=== PATIENT | female | born 1985 | race Caucasian/White ===

== ENCOUNTER 2016-07-15 22:18 | Emergency (ER) ==
[2016-07-15 22:25] VITALS: BP 132/68; TEMP 97.9; BMI 34.5
[2016-07-15] MEDS ORDERED: TYLENOL PO STA (22:30)
[2016-07-15] MEDS ORDERED: DECADRON 4 MG/ML SDV IM STA (22:31)
--- NOTE | 2016-07-15 22:33 | ED.PDOC ---
General ED Provider: Dr. STAN HERNANDEZ Chief Complaint: Nausea/Vomiting Stated Complaint: Coughing congestion, sinus draiange, hurting all over, nausea vomitings, Time Seen by Physician: 22:31 Mode of Arrival: Walk-In Information Source: Patient Primary Care Provider: NATALIE JOHNSON Nursing and Triage Documentation Reviewed and Agree: Yes Respiratory Complaint Exam - Respiratory Complaint/Exam Symptoms Are: Still present Timing: Constant Initial Severity: Moderate Current Severity: Moderate Location: Chest Character: Reports: Productive cough Aggravating: Reports: Allergens, URI Alleviating: Reports: None Associated Signs and Symptoms: Reports: URI, Nasal congestion, Hoarseness, Sore throat. Denies: Rapid breathing, Dyspnea, Fever, Chills, Chest pain, Pleuritic chest pain, Wheezing, Hemoptysis, Dizziness, Calf pain, Calf swelling, Edema, Sinus discomfort, Vomiting, Weight loss, Decreased oral intake, Increased thirst , Increased appetite, Increased urination History of Healthcare-Acquired Pneumonia: No Related Surgical History: Reports: None Pulmonary Embolism Risk Factors: None Cardiac Risk Factors: Reports: None Pseudomonas Risk Factors: Reports: None Tuberculosis Risk Factors: Reports: None Status Asthmaticus Risk Factors: Reports: None Home Oxygen Use: No Recent Stress Test: No Recent Echo/LV Function: No Current Antibiotic Use: No Current Asthma Medication Use: No Respiratory Distress: None Inadequate Respiratory Effort: No Dysphagia Present: No Stridor Present: No JVD Present: No Accessory Muscle Use: No Retractions: Not Present Diminished Breath Sounds: Yes Sinus Tenderness: None Grunting Respirations: No Kussmaul Respirations: No Differential Diagnoses: Pneumonia, Bronchitis, Influenza Review of Systems - Review Of Systems Constitutional: Reports: Fever, Malaise, Weakness Eyes: Reports: No symptoms Ears, Nose, Mouth, Throat: Reports: Throat pain Respiratory: Reports: Cough, Orthopnea Cardiac: Reports: No symptoms GI: Reports: No symptoms : Reports: No symptoms Musculoskeletal: Reports: No symptoms Skin: Reports: No symptoms Neurological: Reports: No symptoms Endocrine: Reports: No symptoms Hematologic/Lymphatic: Reports: No symptoms All Other Systems: Reviewed and Negative Past Medical History - Past Medical History Previously Healthy: Yes Endocrine: Reports: None Cardiovascular: Reports: None Respiratory: Reports: None Hematological: Reports: None Gastrointestinal: Reports: None Genitourinary: Reports: None Neuro/Psych: Reports: None Musculoskeletal: Reports: Joint Pain Cancer: Reports: None Last Menstrual Period: 1 week ago - Surgical History General Surgical History: Reports: Tubal ligation - Family History Family History: Reports: Cancer (Breast cancer at early age ) - Social History Smoking Status: Current every day smoker, Heavy tobacco smoker Hx Substance Use: No Alcohol Screening: None - Immunizations Tetanus Shot up to Date: Yes Physical Exam - Physical Exam Appearance: Ill-appearing, Obese Ill-appearing: Moderate Eyes: RIMMA, EOMI, Conjunctiva clear ENT: Erythema Respiratory: Airway patent, Breath sounds clear, Breath sounds equal, Respirations nonlabored Cardiovascular: RRR, Pulses normal, No rub, No murmur GI/: Soft, Nontender, No masses, Bowel sounds normal, No Organomegaly Musculoskeletal: Normal strength, ROM intact, No edema, No calf tenderness Skin: Warm, Dry, Normal color Neurological: Sensation intact, Motor intact, Reflexes intact, Cranial nerves intact, Alert, Oriented Psychiatric: Affect appropriate, Mood appropriate Critical Care Note - Critical Care Note Total Time (mins): 0 Course - Course Hematology/Chemistry: 07/15/16 22:40 07/15/16 22:40 Orders, Labs, Meds: Lab Review 07/15/16 07/16/16 22:40 00:39 WBC 12.46 H RBC 4.36 Hgb 13.1 Hct 39.0 MCV 89.4 MCH 30.0 MCHC 33.6 RDW Coeff of Cate 14.7 Plt Count 239 Immature Gran % (Auto) 0.2 Neut % (Auto) 67.3 Lymph % (Auto) 23.0 [place] % (Auto) 8.4 Eos % (Auto) 0.8 Baso % (Auto) 0.3 Immature Gran # (Auto) 0.0 Neut # 8.4 H Lymph # 2.9 [place] # 1.1 Eos # 0.1 Baso # 0.0 Sodium 139 Potassium 3.7 Chloride 107 Carbon Dioxide 25 Anion Gap 10.7 BUN 9 Creatinine 0.79 Estimated GFR (MDRD) 84.00 BUN/Creatinine Ratio 11.39 Glucose 108 Calcium 8.9 Total Bilirubin 0.33 AST 12 L ALT 18 Alkaline Phosphatase 80 Total Protein 6.6 Albumin 3.6 Globulin 3.0 Albumin/Globulin Ratio 1.20 Urine Color Yellow Urine Clarity Clear Urine pH 5.5 Ur Specific [place] >=1.030 Urine Protein Negative Urine Glucose (UA) Negative Urine Ketones Negative Urine Blood Negative Urine Nitrite Negative Urine Bilirubin Negative Urine Urobilinogen 1.0 Ur Leukocyte Esterase Negative Influenza A (Rapid) Negative Influenza B (Rapid) Negative Orders Category Date Time Status BLOOD CULTURE Stat LAB 07/15/16 22:40 Received CBC W/ AUTO DIFF Stat LAB 07/15/16 22:40 Completed COMPREHENSIVE METABOLIC PANEL Stat LAB 07/15/16 22:40 Completed MOLECULAR GROUP A STREP Stat LAB 07/15/16 22:40 Results RAPID FLU A/B Stat LAB 07/15/16 22:40 Completed STREP SCREEN Stat LAB 07/15/16 22:40 Results UA [URINALYSIS C & S IF INDICATED] Stat LAB 07/16/16 00:39 Completed Acetaminophen [Tylenol] MEDS 07/15/16 22:30 Discontinued 500 mg PO ONCE STA Cephalexin [Keflex] MEDS 07/16/16 00:29 Discontinued 500 mg PO ONCE STA Dexamethasone 4 mg/ml Inj [Decadron 4 mg/ml Sdv] MEDS 07/15/16 22:31 Discontinued 4 mg IM ONCE STA CHEST, 2 VIEWS PA & LAT Stat RADS 07/15/16 22:30 Completed Medications Discontinued Medications Generic Name Dose Route Start Last Admin Trade Name Freq PRN Reason Stop Dose Admin Acetaminophen 500 mg 07/15/16 22:30 07/15/16 22:46 Tylenol PO 07/15/16 22:31 500 mg ONCE STA Administration Cephalexin 500 mg 07/16/16 00:29 07/16/16 00:37 Keflex PO 07/16/16 00:30 500 mg ONCE STA Administration Dexamethasone Sodium Phosphate 4 mg 07/15/16 22:31 07/15/16 22:47 Decadron 4 Mg/Ml Sdv IM 07/15/16 22:32 4 mg ONCE STA Administration Vital Signs: Temp Pulse Resp BP Pulse Ox 07/15/16 22:18 97.9 F 67 20 132/68 93 L Departure - Departure Time of Disposition: 00:48 Disposition: HOME SELF-CARE Discharge Problem: URTI (acute upper respiratory infection) Instructions: Upper Respiratory Infection (ED) Condition: Stable Pt referred to PMD for follow-up: Yes Additional Instructions: cut down on soda INCREASE HYDRATION TYLENOL OR IBUPROFEN PRN Prescriptions: Cephalexin [Keflex] 500 mg PO Q12HR #20 capsule Prednisone 10 mg PO BIDWM #14 tablet Allergies/Adverse Reactions: Allergies codeine Adverse Reaction (Verified 05/25/16 18:44) THROAT SWELLS SHUT ketorolac [From Toradol] Adverse Reaction (Verified 05/25/16 18:44) morphine Adverse Reaction (Verified 05/25/16 18:44) THROAT SWELLING Penicillins Adverse Reaction (Verified 05/25/16 18:44) tape Adverse Reaction (Uncoded 05/18/16 15:15) Home Medications: Ambulatory Orders Gabapentin 600 mg PO TID 01/31/14 Alprazolam [Xanax] 2 mg PO TID 02/08/15 Citalopram Hydrobromide [Celexa] 40 mg PO BID 02/24/15 Ibuprofen 800 mg PO TID PRN 08/27/15 Levetiracetam [Keppra] 1,000 mg PO BID 08/27/15 Cephalexin [Keflex] 500 mg PO Q12HR #20 capsule 07/16/16 Prednisone 10 mg PO BIDWM #14 tablet 07/16/16 Disposition Discussed With: Patient, Family
[2016-07-15 22:51] LABS: BASOPHILS % (AUTO) 0.3 % (0.0-3.0); EOSINOPHILS # (AUTO) 0.1 K/ul (0.0-0.7); EOSINOPHILS % (AUTO) 0.8 % (0.0-7.0); HEMOGLOBIN 13.1 g/dl (12.0-16.0); IMMATURE GRANULOCYTE % (AUTO) 0.2 % (0.0-5.0); LYMPHOCYTES # (AUTO) 2.9 K/uL (0.60-3.4); MEAN CORPUSCULAR HGB CONC 33.6 (31.8-35.4); MEAN CORPUSCULAR VOLUME 89.4 fl (81.0-99.0); MONOCYTES # (AUTO) 1.1 K/uL (0.4-2.0); MONOCYTES % (AUTO) 8.4 (0-10); NEUTROPHILS # (AUTO) 8.4 K/ul (2.0-6.9); NEUTROPHILS % (AUTO) 67.3; PLATELET COUNT 239 10^3/uL (140-440); RED BLOOD COUNT 4.36 10^6/ul (4.20-5.40); WHITE BLOOD COUNT 12.46 K/ul (4.6-10.2)
[2016-07-15 23:08] LABS: FLU INTERNAL QC INTERNAL QC VALID; RAPID FLU A NEGATIVE (NEGATIVE); RAPID FLU B NEGATIVE (NEGATIVE)
[2016-07-15 23:12] LABS: ALBUMIN 3.6 g/dL (3.4-5.0); ALBUMIN/GLOBULIN RATIO 1.2; ANION GAP 10.7; BILIRUBIN,TOTAL 0.33 mg/dL (0.00-1.20); CALCIUM 8.9 mg/dL (8.2-10.2); CREATININE 0.79 mg/dL (0.60-1.30); POTASSIUM 3.7 mmol/L (3.5-5.10); TOTAL PROTEIN 6.6 g/dL (6.4-8.2)
[2016-07-15 23:13] LABS: BUN/CREATININE RATIO 11.39
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
[2016-07-16] MEDS ORDERED: KEFLEX PO STA (00:29)
[2016-07-16 00:42] LABS: BILIRUBIN,URINE Negative (NEGATIVE); KETONES,URINE Negative (NEGATIVE); LEUKOCYTE ESTERASE ,URINE Negative (NEGATIVE); NITRITE,URINE Negative (NEGATIVE); PH,URINE 5.5 (5-9); PROTEIN,URINE Negative (NEGATIVE); URINE, BLOOD Negative (NEGATIVE)
[2016-07-16 00:43] LABS: ADD URINE MICROSCOPIC NO
== END 2016-07-16 01:09 | disposition home or self-care (01) ==
LOC: ED 22:18
DX: J06.9 Acute upper respiratory infection, unspecified (principal); R11.2 Nausea with vomiting, unspecified; F17.210 Nicotine dependence, cigarettes, uncomplicated; Z79.899 Other long term (current) drug therapy
CPT/HCPCS: 36415; 80053; 81001; 85025; 87040; 87651; 87804; 87880; 96372; 99283

== ENCOUNTER 2016-08-02 09:57 | Outpatient (CLI) ==
[2016-08-02 10:31] LABS: BASOPHILS % (AUTO) 0.3 % (0.0-3.0); EOSINOPHILS # (AUTO) 0.1 K/ul (0.0-0.7); EOSINOPHILS % (AUTO) 1.7 % (0.0-7.0); HEMATOCRIT 41.9 % (37.0-47.0); HEMOGLOBIN 14.3 g/dl (12.0-16.0); IMMATURE GRANULOCYTE % (AUTO) 0.4 % (0.0-5.0); LYMPHOCYTES % (AUTO) 25.8 (10.0-50.0); MEAN CORPUSCULAR HEMOGLOBIN 30.9 pg (27.0-31.0); MEAN CORPUSCULAR HGB CONC 34.1 (31.8-35.4); MEAN CORPUSCULAR VOLUME 90.5 fl (81.0-99.0); MONOCYTES # (AUTO) 0.6 K/uL (0.4-2.0); MONOCYTES % (AUTO) 8.1 (0-10); NEUTROPHILS % (AUTO) 63.7; PLATELET COUNT 243 10^3/uL (140-440); RED BLOOD COUNT 4.63 10^6/ul (4.20-5.40)
[2016-08-02 14:16] LABS: ALBUMIN 3.7 g/dL (3.4-5.0); ALBUMIN/GLOBULIN RATIO 1.06; ANION GAP 14.2; BILIRUBIN,TOTAL 0.33 mg/dL (0.00-1.20); BUN/CREATININE RATIO 16.45; CALCIUM 9.1 mg/dL (8.2-10.2); CHOL/HDL RATIO 7.6 (4.5-5.5); CREATININE 0.79 mg/dL (0.60-1.30); FOLATE 4.6 ng/mL (3.1-20.5); POTASSIUM 4.2 mmol/L (3.5-5.10); TOTAL PROTEIN 7.2 g/dL (6.4-8.2)
== END 2016-08-02 09:58 | disposition home or self-care (01) ==
LOC: LAB 09:57
PROVIDERS: ATTEND Family Medicine
DX: R53.83 Other fatigue (principal); R73.09 Other abnormal glucose
CPT/HCPCS: 36415; 80053; 80061; 82607; 82746; 83036; 84436; 84439; 84443; 85025

== ENCOUNTER 2017-03-27 20:27 | Emergency (ER) ==
[2017-03-27 20:32] VITALS: BP 173/101; TEMP 98.9; BMI 36.6
[2017-03-27] MEDS ORDERED: NORCO 7.5-325 PO STA (20:41)
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
== END 2017-03-27 21:50 | disposition home or self-care (01) ==
LOC: ED 20:27
DX: M25.531 Pain in right wrist (principal); R51 Headache; S00.83XA Contusion of other part of head, initial encounter; Y09 Assault by unspecified means; F17.210 Nicotine dependence, cigarettes, uncomplicated
CPT/HCPCS: 99283

== ENCOUNTER 2017-04-04 11:08 | Outpatient (CLI) | END 2017-04-04 11:09 | disposition home or self-care (01) | LOC: LAB 11:08 | PROVIDERS: ATTEND Family Medicine | DX: E53.8 Deficiency of other specified B group vitamins (principal) | CPT/HCPCS: 36415; 82607 ==

== ENCOUNTER 2017-04-06 14:18 | Outpatient (CLI) | END 2017-04-06 14:19 | disposition short-term general hospital (02) | LOC: AMBL 14:18 | PROVIDERS: ATTEND Internal Medicine | DX: R56.9 Unspecified convulsions (principal); S09.90XA Unspecified injury of head, initial encounter; R51 Headache; W19.XXXA Unspecified fall, initial encounter ==

== ENCOUNTER 2017-04-09 11:02 | Outpatient (CLI) | END 2017-04-09 11:03 | disposition short-term general hospital (02) | LOC: AMBL 11:02 | PROVIDERS: ATTEND Family Medicine | DX: N93.9 Abnormal uterine and vaginal bleeding, unspecified (principal); R10.9 Unspecified abdominal pain; R10.2 Pelvic and perineal pain; E86.0 Dehydration; R00.0 Tachycardia, unspecified; F15.10 Other stimulant abuse, uncomplicated ==

== ENCOUNTER 2017-05-12 17:31 | Emergency (ER) ==
[2017-05-12 17:41] VITALS: BP 142/97; TEMP 98.6; BMI 37.8
[2017-05-12 17:59] LABS: BASOPHILS % (AUTO) 0.3 % (0.0-3.0); EOSINOPHILS # (AUTO) 0.1 K/ul (0.0-0.7); EOSINOPHILS % (AUTO) 1.2 % (0.0-7.0); HEMATOCRIT 42.1 % (37.0-47.0); HEMOGLOBIN 14.6 g/dl (12.0-16.0); IMMATURE GRANULOCYTE % (AUTO) 0.4 % (0.0-5.0); LYMPHOCYTES # (AUTO) 2.5 K/uL (0.60-3.4); LYMPHOCYTES % (AUTO) 24.6 (10.0-50.0); MEAN CORPUSCULAR HEMOGLOBIN 31.5 pg (27.0-31.0); MEAN CORPUSCULAR HGB CONC 34.7 (31.8-35.4); MEAN CORPUSCULAR VOLUME 90.9 fl (81.0-99.0); MONOCYTES % (AUTO) 9.5 (0-10); NEUTROPHILS # (AUTO) 6.5 K/ul (2.0-6.9); PLATELET COUNT 226 10^3/uL (140-440); RED BLOOD COUNT 4.63 10^6/ul (4.20-5.40); WHITE BLOOD COUNT 10.12 K/ul (4.6-10.2)
--- NOTE | 2017-05-12 18:04 | ED.PDOC ---
General ED Provider: Dr. KENA SEVILLA Chief Complaint: Seizure Stated Complaint: seizure Time Seen by Physician: 17:38 (aarived fully alert and no deficits ) Mode of Arrival: Stretcher Information Source: Patient, EMT Exam Limitations: No limitations Nursing and Triage Documentation Reviewed and Agree: Yes (entire nursing staff present) Neurological Complaint Exam - Seizure Complaint/Exam Onset/Duration: 20 min ago had 2 episodes of seizure no wintess Symptoms Are: Resolved Episodes Lasting: Seconds Single or Multiple Episode: 2 entire day prior to arrival Failed to Regain Consciousness: No Severity: Self-limited Character: Atonic Aggravating: Reports: None Alleviating: Reports: Spontaneous resolution Associated Signs and Symptoms: Reports: Anxiety, Emotional distress. Denies: Impaired speech, Bladder incontinence, Bowel incontinence, Trauma, Illness, Vomiting, Lethargy, Apnea Related History: Reports: Similar episode SAH Risk Factors: Reports: Smoking Meningitis Risk Factors: Reports: None SDH Risk Factors: Reports: None Related Surgical History: Reports: None Carotid Bruit Present: No Cephalohematoma Present: No Tongue Bitten: No Neck Pain Present: No Glascow Coma Scale (see protocol): 15 Nystagmus Present: No Gag Reflex Present: No Speech: Present: Normal Findings Aphasia: Present: None Meningeal Signs Positive: No Focal Weakness: Present: None Focal Sensory Loss: Reports: None Babinski Sign: Negative Right, Negative Left Signs of Injury: Present: Normal findings Differential Diagnoses: Seizure Review of Systems - Review Of Systems Constitutional: Reports: No symptoms Eyes: Reports: No symptoms Ears, Nose, Mouth, Throat: Reports: No symptoms Respiratory: Reports: No symptoms Cardiac: Reports: No symptoms GI: Reports: No symptoms : Reports: No symptoms Musculoskeletal: Reports: No symptoms Skin: Reports: No symptoms Neurological: Reports: No symptoms Endocrine: Reports: No symptoms Hematologic/Lymphatic: Reports: No symptoms All Other Systems: Reviewed and Negative Past Medical History - Past Medical History Previously Healthy: Yes Endocrine: Reports: None Cardiovascular: Reports: None Respiratory: Reports: None Hematological: Reports: None Gastrointestinal: Reports: None Genitourinary: Reports: None Neuro/Psych: Reports: None Musculoskeletal: Reports: Joint Pain Cancer: Reports: None Last Menstrual Period: unknown - Surgical History General Surgical History: Reports: Tubal ligation - Family History Family History: Reports: Cancer (Breast cancer at early age ) - Social History Smoking Status: Current every day smoker, Heavy tobacco smoker Hx Substance Use: No Alcohol Screening: None Physical Exam - Physical Exam Appearance: Well-appearing, No pain distress, Well-nourished Eyes: RIMMA, EOMI, Conjunctiva clear ENT: Ears normal, Nose normal, Oropharynx normal Respiratory: Airway patent, Breath sounds clear, Breath sounds equal, Respirations nonlabored Cardiovascular: RRR, Pulses normal, No rub, No murmur GI/: Soft, Nontender, No masses, Bowel sounds normal, No Organomegaly Musculoskeletal: Normal strength, ROM intact, No edema, No calf tenderness Skin: Warm, Dry, Normal color Neurological: Sensation intact, Motor intact, Reflexes intact, Cranial nerves intact, Alert, Oriented Psychiatric: Affect appropriate, Mood appropriate Interpretation - Radiology Interpretation Radiology Interpretation By: Radiologist - Industrial Pipefitter Journeyman Rate: Normal Rhythm: Sinus Ectopy: None - EKG Interpretation Rate: Normal Rhythm: Sinus Ectopy: None [place]: [place] ST Segment: Normal Re-Evaluation - Re-Evaluation Time of Re-Evaluation: 18:10 Status: Improved Vital Signs Stable: Yes Pain Level: 0 Appearance: NAD Lungs: Clear Skin: Warm and Dry Neuro: Alert and Oriented X3 CV: Other (no seizue activity) - Re-Evaluation Time of Re-Evaluation: 19:00 Status: Improved Vital Signs Stable: Yes Pain Level: 0 Appearance: NAD Skin: Warm and Dry Neuro: Alert and Oriented X3 CV: RRR Critical Care Note - Critical Care Note Total Time (mins): 0 Course - Course Orders, Labs, Meds: Orders Category Date Time Status EKG-(ED ONLY) Stat CARDIO 05/12/17 17:45 Ordered CBC W/ AUTO DIFF Stat LAB 05/12/17 17:30 Received COMPREHENSIVE METABOLIC PANEL Stat LAB 05/12/17 17:30 Received SERUM Stat LAB 05/12/17 17:[address] HEAD W/O CONTRAST Stat RADS 05/12/17 17:44 Ordered Vital Signs: Temp Pulse Resp BP Pulse Ox 05/12/17 17:32 98.6 F 70 16 142/97 H 99 Departure - Departure Time of Disposition: 19:00 Disposition: HOME SELF-CARE Discharge Problem: Seizure Instructions: Recurrent Seizures in Adults (ED) Condition: Good Pt referred to PMD for follow-up: Yes Additional Instructions: Please call your Family Physician as soon as possible to schedule a follow-up appointment.on the neurological exam no serious findings noted. this kind of seizure may be needing new meds or adjustment of the level of the present meds . you must see you doctor to further evaluate you. smoking while on seizure meds causes their levels of medication in your blood to drop and expose you to further seziures. Allergies/Adverse Reactions: Allergies codeine Adverse Reaction (Verified 05/12/17 17:45) THROAT SWELLS SHUT ketorolac [From Toradol] Adverse Reaction (Verified 05/12/17 17:45) morphine Adverse Reaction (Verified 05/12/17 17:45) THROAT SWELLING Penicillins Adverse Reaction (Verified 05/12/17 17:45) tape Adverse Reaction (Uncoded 05/18/16 15:15) Home Medications: Ambulatory Orders Gabapentin 600 mg PO TID 01/31/14 Alprazolam [Xanax] 2 mg PO TID 02/08/15 Citalopram Hydrobromide [Celexa] 40 mg PO BID 02/24/15 Ibuprofen 800 mg PO TID PRN 08/27/15 Levetiracetam [Keppra] 1,000 mg PO BID 08/27/15
[2017-05-12 18:09] LABS: SERUM PREGNANCY INTERNAL QC INTERNAL QC VALID
[2017-05-12 18:17] LABS: ALBUMIN 3.6 g/dL (3.4-5.0); ANION GAP 10.3; BILIRUBIN,TOTAL 0.28 mg/dL (0.00-1.20); BUN/CREATININE RATIO 14.81; CALCIUM 9.3 mg/dL (8.2-10.2); CREATININE 0.81 mg/dL (0.60-1.30); POTASSIUM 4.3 mmol/L (3.5-5.10); TOTAL PROTEIN 7.2 g/dL (6.4-8.2)
== END 2017-05-12 18:24 | disposition left against medical advice (07) ==
LOC: ED 17:31
DX: R56.9 Unspecified convulsions (principal); F17.210 Nicotine dependence, cigarettes, uncomplicated; Z79.899 Other long term (current) drug therapy
CPT/HCPCS: 36415; 80053; 84703; 85025; 93005; 93010; 99284

== ENCOUNTER 2017-06-14 09:40 | Emergency (ER) ==
[2017-06-14 09:41] VITALS: BMI 37.8
[2017-06-14 09:52] VITALS: BP 128/87; TEMP 98.5
--- NOTE | 2017-06-14 09:54 | ED.PDOC ---
General ED Provider: Dr. JANETTE RAMOS Chief Complaint: Urinary Problem Stated Complaint: Back pain; frequency and urgency with urination. Time Seen by Physician: 10:05 Mode of Arrival: Walk-In Information Source: Patient Exam Limitations: No limitations Primary Care Provider: NATALIE JOHNSON Nursing and Triage Documentation Reviewed and Agree: Yes Review of Systems - Review Of Systems Constitutional: Reports: No symptoms : Reports: Dysuria, Frequency Musculoskeletal: Reports: Back pain (Bilateral around to hips; no radiculopathy) All Other Systems: Reviewed and Negative Past Medical History - Past Medical History Previously Healthy: Yes Endocrine: Reports: None Cardiovascular: Reports: None Respiratory: Reports: None Hematological: Reports: None Gastrointestinal: Reports: None Genitourinary: Reports: None Neuro/Psych: Reports: None Musculoskeletal: Reports: Joint Pain Cancer: Reports: None - Surgical History General Surgical History: Reports: Tubal ligation - Family History Family History: Reports: Cancer (Breast cancer at early age ) - Social History Smoking Status: Current every day smoker, Heavy tobacco smoker Hx Substance Use: No Alcohol Screening: None Physical Exam - Physical Exam Appearance: Well-appearing Respiratory: Airway patent, Breath sounds clear, Breath sounds equal Cardiovascular: RRR Musculoskeletal: Normal strength, ROM intact Skin: Warm, Dry, Normal color Neurological: Sensation intact, Motor intact Psychiatric: Affect appropriate, Mood appropriate Critical Care Note - Critical Care Note Total Time (mins): 8 Course - Course Orders, Labs, Meds: Lab Review 06/14/17 06/14/17 10:10 10:15 Urine Color Yellow Urine Clarity Clear Urine pH 7.0 Ur Specific [place] 1.015 Urine Protein Negative Urine Glucose (UA) Negative Urine Ketones Negative Urine Blood Trace-intact Urine Nitrite Negative Urine Bilirubin Negative Urine Urobilinogen 0.2 Ur Leukocyte Esterase Trace Urine Microscopic RBC 0-2 Urine Microscopic WBC 2-5 Ur Squamous Epith Cells 0-2 Urine Bacteria 1+ Urine Test Negative Orders Category Date Time Status URINALYSIS C & S IF INDICATED Stat LAB 06/14/17 10:15 Completed URINE CULTURE Stat LAB 06/14/17 10:31 Received URINE Stat LAB 06/14/17 10:10 Completed Vital Signs: Temp Pulse Resp BP Pulse Ox 06/14/17 09:45 98.5 F 85 20 128/87 98 Departure - Departure Time of Disposition: 12:09 Disposition: HOME SELF-CARE Discharge Problem: Low back pain Qualifiers: Chronicity: acute Back pain laterality: bilateral Sciatica presence: without sciatica Qualified Code(s): M54.5 - Low back pain Instructions: Low Back Strain (GEN) Condition: Good Pt referred to PMD for follow-up: Yes (Call for appointment) Additional Instructions: Follow up with primary care provider; use tylenol and or ibuprofen for discomfort Allergies/Adverse Reactions: Allergies codeine Adverse Reaction (Verified 06/14/17 09:52) THROAT SWELLS SHUT ketorolac [From Toradol] Adverse Reaction (Verified 06/14/17 09:52) morphine Adverse Reaction (Verified 06/14/17 09:52) THROAT SWELLING Penicillins Adverse Reaction (Verified 06/14/17 09:52) tape Adverse Reaction (Uncoded 05/18/16 15:15) Home Medications: Ambulatory Orders Gabapentin 600 mg PO TID 01/31/14 Alprazolam [Xanax] 2 mg PO TID 02/08/15 Citalopram Hydrobromide [Celexa] 40 mg PO BID 02/24/15 Ibuprofen 800 mg PO TID PRN 08/27/15 Disposition Discussed With: Patient (Educated no indication of urinary tract infection; clinically consistent with muscular low back pain)
[2017-06-14 10:28] LABS: BILIRUBIN,URINE Negative (NEGATIVE); KETONES,URINE Negative (NEGATIVE); LEUKOCYTE ESTERASE ,URINE Trace (NEGATIVE); NITRITE,URINE Negative (NEGATIVE); PROTEIN,URINE Negative (NEGATIVE); URINE, BLOOD Trace-intact (NEGATIVE)
[2017-06-14 10:29] LABS: ADD URINE MICROSCOPIC YES
[2017-06-14 10:32] LABS: BACTERIA,URINE 1+ (NOT PRESENT)
[2017-06-14 11:40] LABS: URINE PREGNANCY INTERNAL QC INTERNAL QC VALID
== END 2017-06-14 12:40 | disposition home or self-care (01) ==
LOC: ED 09:40
DX: M54.5 Low back pain (principal); R35.0 Frequency of micturition; R39.15 Urgency of urination; F17.210 Nicotine dependence, cigarettes, uncomplicated
CPT/HCPCS: 81001; 81025; 87086; 87186; 99282

== ENCOUNTER 2017-06-23 15:19 | Outpatient (CLI) ==
[2017-06-23 15:39] VITALS: BMI 17.4
== END 2017-06-23 15:20 | disposition critical access hospital (66) ==
LOC: AMBL 15:19
PROVIDERS: ATTEND Internal Medicine
DX: R56.9 Unspecified convulsions (principal); F32.9 Major depressive disorder, single episode, unspecified; R45.851 Suicidal ideations; S51.812A Laceration without foreign body of left forearm, initial encounter; S51.811A Laceration without foreign body of right forearm, initial encounter; X78.9XXA Intentional self-harm by unspecified sharp object, initial encounter

== ENCOUNTER 2017-06-23 15:27 | Emergency (ER) ==
[2017-06-23 15:39] VITALS: BP 123/62; TEMP 97.9; BMI 17.4
--- NOTE | 2017-06-23 18:20 | ED.PDOC ---
General ED Provider: Dr. KENA SEVILLA Chief Complaint: Behavioral Complaint Stated Complaint: depression Time Seen by Physician: 15:30 Mode of Arrival: Stretcher Information Source: Patient, EMT Exam Limitations: No limitations Primary Care Provider: NATALIE JOHNSON Nursing and Triage Documentation Reviewed and Agree: Yes Reviewed sepsis parameters & appropriate labs ordered?: Yes System Inflammatory Response Syndrome: Not Applicable Sepsis Protocol: For patient's 13 years and over: Temp is 96.8 and below OR 101 and greater Pulse >90 BPM Resp >20/minute Acutely Altered Mental Status Are patient's symptoms suggestive of a new infection, such as: -Pneumonia -Skin, Soft Tissue -Endocarditis -UTI -Bone, Joint Infection -Implantable Device -Acute Abdominal Infection -Wound Infection -Meningitis -Blood Stream Catheter Infection -Unknown Psychological Complaint Exam - Psychiatric Complaint/Exam Patient Complains Of: Present: Depression Onset/Duration: today Symptoms Are: Resolved Timing: Intermittent Initial Severity: Mild Current Severity: None Character: Present: Depressed, Anxious Aggravating: Reports: None Associated Signs And Symptoms: Reports: Appetite change. Denies: Hostile, Confused, Hallucinating, Paranoid behavior, Sleep disturbance Related History: Denies: Suicidal thoughts, Suicidal plan, Suicidal gestures ( stated get pleasure fom cutting said pain is a myers) Completed Suicide Risk Factors: None Patient Accompanied By: Family Patient In Custody Of Police: No Social Withdrawal Present: No Social Isolation Present: No Prior Suicide Attempt: No Injury From Prior Suicide Attempt: No Related Surgical History: Reports: None Patient Uncooperative For Exam: No Appearance: Present: Clean Thought Process: Present: Logical Insight: Present: Good Judgement: Normal Danger To Others: No Differential Diagnoses: Anxiety, Depression Review of Systems - Review Of Systems Constitutional: Reports: No symptoms Eyes: Reports: No symptoms Ears, Nose, Mouth, Throat: Reports: No symptoms Respiratory: Reports: No symptoms Cardiac: Reports: No symptoms GI: Reports: No symptoms : Reports: No symptoms Musculoskeletal: Reports: No symptoms Skin: Reports: Other (abrasions arms ) Neurological: Reports: Anxiety, Depressed Endocrine: Reports: No symptoms Hematologic/Lymphatic: Reports: No symptoms All Other Systems: Reviewed and Negative Past Medical History - Past Medical History Previously Healthy: Yes Endocrine: Reports: None Cardiovascular: Reports: None Respiratory: Reports: None Hematological: Reports: None Gastrointestinal: Reports: None Genitourinary: Reports: None Neuro/Psych: Reports: None Musculoskeletal: Reports: Joint Pain Cancer: Reports: None Last Menstrual Period: now - Surgical History General Surgical History: Reports: Tubal ligation - Family History Family History: Reports: Cancer (Breast cancer at early age ) - Social History Smoking Status: Current every day smoker, Heavy tobacco smoker Hx Substance Use: No Alcohol Screening: None Physical Exam - Physical Exam Appearance: Well-appearing, No pain distress, Well-nourished Eyes: RIMMA, EOMI, Conjunctiva clear ENT: Ears normal, Nose normal, Oropharynx normal Respiratory: Airway patent, Breath sounds clear, Breath sounds equal, Respirations nonlabored Cardiovascular: RRR, Pulses normal, No rub, No murmur GI/: Soft, Nontender, No masses, Bowel sounds normal, No Organomegaly Musculoskeletal: Normal strength, ROM intact, No edema, No calf tenderness Skin: Warm, Dry (abrasion r,l forearm) Neurological: Sensation intact, Motor intact, Reflexes intact, Cranial nerves intact, Alert, Oriented Psychiatric: Affect appropriate, Mood appropriate Critical Care Note - Critical Care Note Total Time (mins): 0 Course - Course Hematology/Chemistry: 06/23/17 16:00 06/23/17 16:00 Orders, Labs, Meds: Lab Review 06/23/17 06/23/17 06/23/17 16:00 16:00 16:10 WBC 10.58 H RBC 4.41 Hgb 13.9 Hct 40.4 MCV 91.6 MCH 31.5 H MCHC 34.4 RDW Coeff of Cate 14.5 Plt Count 271 Immature Gran % (Auto) 0.6 Neut % (Auto) 70.3 Lymph % (Auto) 19.6 [place] % (Auto) 8.4 Eos % (Auto) 0.8 Baso % (Auto) 0.3 Immature Gran # (Auto) 0.1 Neut # 7.5 H Lymph # 2.1 [place] # 0.9 Eos # 0.1 Baso # 0.0 Sodium 139 Potassium 4.0 Chloride 106 Carbon Dioxide 23 Anion Gap 14.0 BUN 8 Creatinine 0.73 Estimated GFR (MDRD) 92.00 BUN/Creatinine Ratio 10.95 Glucose 100 Calcium 9.2 Total Bilirubin 0.5 AST 18 ALT 28 Alkaline Phosphatase 77 Total Protein 7.7 Albumin 3.7 Globulin 4.0 Albumin/Globulin Ratio 0.93 Urine Color Urine Clarity Urine pH Ur Specific [place] Urine Protein Urine Glucose (UA) Urine Ketones Urine Blood Urine Nitrite Urine Bilirubin Urine Urobilinogen Ur Leukocyte Esterase Urine Microscopic RBC Urine Microscopic WBC Ur Squamous Epith Cells Urine Bacteria Salicylate Level mg/dL < 5.0 Urine Opiates Screen Negative Ur Oxycodone Screen Negative Urine Methadone Screen Negative Ur Propoxyphene Screen Negative Acetaminophen < 3 L Ur Barbiturates Screen Negative U Tricyclic Antidepress Negative Ur Phencyclidine Scrn Negative Ur Amphetamine Screen Negative U Methamphetamines Scrn Negative U Benzodiazepines Scrn Negative Urine Cocaine Screen Negative U Cannabinoids Screen Negative Plasma/Serum Alcohol < 10.0 06/23/17 16:10 WBC RBC Hgb Hct MCV MCH MCHC RDW Coeff of Cate Plt Count Immature Gran % (Auto) Neut % (Auto) Lymph % (Auto) [place] % (Auto) Eos % (Auto) Baso % (Auto) Immature Gran # (Auto) Neut # Lymph # [place] # Eos # Baso # Sodium Potassium Chloride Carbon Dioxide Anion Gap BUN Creatinine Estimated GFR (MDRD) BUN/Creatinine Ratio Glucose Calcium Total Bilirubin AST ALT Alkaline Phosphatase Total Protein Albumin Globulin Albumin/Globulin Ratio Urine Color Yellow Urine Clarity Clear Urine pH 6.0 Ur Specific [place] 1.010 Urine Protein Negative Urine Glucose (UA) Negative Urine Ketones Negative Urine Blood 3+ Urine Nitrite Negative Urine Bilirubin Negative Urine Urobilinogen 0.2 Ur Leukocyte Esterase Trace Urine Microscopic RBC 10-20 Urine Microscopic WBC 0-2 Ur Squamous Epith Cells 0-2 Urine Bacteria Trace Salicylate Level mg/dL Urine Opiates Screen Ur Oxycodone Screen Urine Methadone Screen Ur Propoxyphene Screen Acetaminophen Ur Barbiturates Screen U Tricyclic Antidepress Ur Phencyclidine Scrn Ur Amphetamine Screen U Methamphetamines Scrn U Benzodiazepines Scrn Urine Cocaine Screen U Cannabinoids Screen Plasma/Serum Alcohol Orders Category Date Time Status EKG-(ED ONLY) Stat CARDIO 06/23/17 15:45 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 06/23/17 15:45 Active Mental Health Consult [ED MENTAL HEALTH CONSULT] .ONCE EMERGENCY 06/23/17 15: 45 Active ACETAMINOPHEN Stat LAB 06/23/17 16:00 Completed BLOOD ALCOHOL Stat LAB 06/23/17 16:00 Completed CBC W/ AUTO DIFF Stat LAB 06/23/17 16:00 Completed COMPREHENSIVE METABOLIC PANEL Stat LAB 06/23/17 16:00 Completed DRUG SCREEN, URINE, RAPID Stat LAB 06/23/17 16:10 Completed SALICYLATE Stat LAB 06/23/17 16:00 Completed URINALYSIS C & S IF INDICATED Stat LAB 06/23/17 16:10 Completed Vital Signs: Temp Pulse Resp BP Pulse Ox 06/23/17 15:28 97.9 F 83 20 123/62 98 Departure - Departure Time of Disposition: 18:20 Disposition: HOME SELF-CARE Discharge Problem: Abrasion, Depression Instructions: Depression (ED), Suicide Prevention for Older Adults (ED), Suicide Prevention for Adults (ED) Condition: Good Pt referred to PMD for follow-up: Yes Additional Instructions: Please call your Family Physician as soon as possible to schedule a follow-up appointment. Allergies/Adverse Reactions: Allergies codeine Adverse Reaction (Verified 06/23/17 15:37) THROAT SWELLS SHUT ketorolac [From Toradol] Adverse Reaction (Verified 06/23/17 15:37) morphine Adverse Reaction (Verified 06/23/17 15:37) THROAT SWELLING Penicillins Adverse Reaction (Verified 06/23/17 15:37) tape Adverse Reaction (Uncoded 05/18/16 15:15) Home Medications: Ambulatory Orders Gabapentin 600 mg PO TID 01/31/14 Alprazolam [Xanax] 2 mg PO TID 02/08/15 Citalopram Hydrobromide [Celexa] 40 mg PO BID 02/24/15 Ibuprofen 800 mg PO TID PRN 08/27/15 Discharge Problem: Depression Qualifiers: Depression Type: unspecified Qualified Code(s): F32.9 - Major depressive disorder, single episode, unspecified
== END 2017-06-23 18:45 | disposition home or self-care (01) ==
LOC: ED 15:27
DX: F32.9 Major depressive disorder, single episode, unspecified (principal); S50.812A Abrasion of left forearm, initial encounter; S50.811A Abrasion of right forearm, initial encounter; F17.210 Nicotine dependence, cigarettes, uncomplicated
CPT/HCPCS: 36415; 80053; 80306; 80307; 81001; 85025; 93005; 93010; 99284

== ENCOUNTER 2017-09-11 18:56 | Emergency (ER) ==
[2017-09-11 19:02] VITALS: BP 131/87; TEMP 99.2; BMI 35.4
--- NOTE | 2017-09-11 19:29 | ED.PDOC ---
General ED Provider: Dr. NATALIE PA Chief Complaint: Tooth Problem Stated Complaint: Patient is a 31 year old female who comes to the ER with complaints of tooth pain on the top right side of her mouth starting at her front tooth and proceeding toward her molars. States she has not been able to find a dentist who takes the medical card. Time Seen by Physician: 19:26 Mode of Arrival: Walk-In Information Source: Patient Exam Limitations: No limitations Primary Care Provider: NATALIE JOHNSON Nursing and Triage Documentation Reviewed and Agree: Yes Reviewed sepsis parameters & appropriate labs ordered?: No System Inflammatory Response Syndrome: Not Applicable Sepsis Protocol: For patient's 13 years and over: Temp is 96.8 and below OR 101 and greater Pulse >90 BPM Resp >20/minute Acutely Altered Mental Status Are patient's symptoms suggestive of a new infection, such as: -Pneumonia -Skin, Soft Tissue -Endocarditis -UTI -Bone, Joint Infection -Implantable Device -Acute Abdominal Infection -Wound Infection -Meningitis -Blood Stream Catheter Infection -Unknown System Inflammatory Response Syndrome: Not Applicable EENT Complaint Exam - Dental/Oral Complaint/Exam Mechanism of Injury: No known trauma Onset/Duration: 3 days Symptoms Are: Still present Timing: Constant Location: right upper teeth Character: Reports: Aching, Throbbing Aggravating: Reports: Heat, Cold, Chewing Alleviating: Reports: None Associated Signs and Symptoms: Reports: Swelling, Discharge, Fever, Foul odor, Foul taste in mouth Related History: Reports: Similar episode Cardiac Risk Factors: Reports: None Tooth Findings: Present: Gross decay, Gross caries, Dental fracture, Abcess Oropharynx Findings: Absent: Clots, Active bleeding Septal Hematoma: No Foreign Body Present: No Dysphagia Present: No Drooling Present: No Asymmetrical Tonsillar Swelling Present: No Uvula Midline: No Kathy-tonsillar Fluctuence: No Trismus Present: No Palatal Petechiae Present: No Scarlatinaform Rash Present: No Lesions: Present: Gums Exanthem: Present: Gums Teeth Picture: 1 - severe dental caries with abscess. Differential Diagnoses: Dental Abcess, Dental Caries Review of Systems - Review Of Systems Constitutional: Reports: No symptoms Eyes: Reports: No symptoms Ears, Nose, Mouth, Throat: Reports: Mouth pain, Loose teeth Respiratory: Reports: No symptoms Cardiac: Reports: No symptoms All Other Systems: Reviewed and Negative Past Medical History - Past Medical History Previously Healthy: Yes Endocrine: Reports: None Cardiovascular: Reports: None Respiratory: Reports: None Hematological: Reports: None Gastrointestinal: Reports: None Genitourinary: Reports: None Neuro/Psych: Reports: None Musculoskeletal: Reports: Joint Pain Cancer: Reports: None Last Menstrual Period: 09/11/17 - Surgical History General Surgical History: Reports: Tubal ligation - Family History Family History: Reports: Cancer (Breast cancer at early age ) - Social History Smoking Status: Current every day smoker, Heavy tobacco smoker Hx Substance Use: No Alcohol Screening: None - Immunizations Tetanus Shot up to Date: No Physical Exam - Physical Exam Appearance: Ill-appearing, Obese Ill-appearing: Moderate Pain Distress: Severe Eyes: RIMMA, EOMI, Conjunctiva clear ENT: Ears normal, Nose normal, Oropharynx normal Neck: Supple Respiratory: Airway patent, Breath sounds clear, Breath sounds equal, Respirations nonlabored Cardiovascular: RRR, Pulses normal, No rub, No murmur Skin: Warm, Dry Neurological: Cranial nerves intact, Alert, Oriented Psychiatric: Anxious Critical Care Note - Critical Care Note Total Time (mins): 0 Course - Course Vital Signs: Temp Pulse Resp BP Pulse Ox 09/11/17 18:57 99.2 F 78 16 131/87 98 Departure - Departure Time of Disposition: 19:27 Disposition: HOME SELF-CARE Discharge Problem: Dental abscess, Dental caries into pulp Instructions: Dental Abscess (ED) Condition: Fair Pt referred to PMD for follow-up: Yes IPMP verified?: No Additional Instructions: Follow up with your primary care provider Take medication as prescribed Prescriptions: Clindamycin HCl 300 mg PO TID #30 capsule Ibuprofen [Motrin] 600 mg PO Q6H PRN #30 tablet PRN Reason: Analgesia Tramadol HCl [Ultram] 50 mg PO Q6H PRN #10 tablet PRN Reason: Severe Pain Allergies/Adverse Reactions: Allergies codeine Adverse Reaction (Verified 09/11/17 19:02) THROAT SWELLS SHUT ketorolac [From Toradol] Adverse Reaction (Verified 09/11/17 19:02) morphine Adverse Reaction (Verified 03/12/18 19:02) THROAT SWELLING Penicillins Adverse Reaction (Verified 09/11/17 19:02) tape Adverse Reaction (Uncoded 09/11/17 19:02) Home Medications: Ambulatory Orders Gabapentin 600 mg PO TID 01/31/14 Alprazolam [Xanax] 2 mg PO TID 02/08/15 Citalopram Hydrobromide [Celexa] 40 mg PO BID 02/24/15 Ibuprofen 800 mg PO TID PRN 08/27/15 Clindamycin HCl 300 mg PO TID #30 capsule 09/11/17 Ibuprofen [Motrin] 600 mg PO Q6H PRN #30 tablet 09/11/17 Tramadol HCl [Ultram] 50 mg PO Q6H PRN #10 tablet 09/11/17
== END 2017-09-11 19:33 | disposition home or self-care (01) ==
LOC: ED 18:56
DX: K04.7 Periapical abscess without sinus (principal); K02.7 Dental root caries; F17.210 Nicotine dependence, cigarettes, uncomplicated
CPT/HCPCS: 99282

== ENCOUNTER 2017-11-01 09:46 | Emergency (ER) ==
[2017-11-01 09:51] VITALS: BP 144/86; TEMP 97.7; BMI 33.9
[2017-11-01] MEDS ORDERED: ROCEPHIN IM STA (10:50)
[2017-11-01] MEDS ORDERED: LIDOCAINE HCL 1% SDV IM STA (10:50)
[2017-11-01] MEDS ORDERED: NORCO 10-325 PO STA (10:51)
--- NOTE | 2017-11-01 11:48 | ED.PDOC ---
General ED Provider: Dr. KENA SEVILLA Chief Complaint: Back Pain Stated Complaint: low back pain and urinary symptoms Time Seen by Physician: 10:00 Mode of Arrival: Walk-In Information Source: Patient Exam Limitations: No limitations Nursing and Triage Documentation Reviewed and Agree: Yes Reviewed sepsis parameters & appropriate labs ordered?: Yes System Inflammatory Response Syndrome: Not Applicable Sepsis Protocol: For patient's 13 years and over: Temp is 96.8 and below OR 101 and greater Pulse >90 BPM Resp >20/minute Acutely Altered Mental Status Are patient's symptoms suggestive of a new infection, such as: -Pneumonia -Skin, Soft Tissue -Endocarditis -UTI -Bone, Joint Infection -Implantable Device -Acute Abdominal Infection -Wound Infection -Meningitis -Blood Stream Catheter Infection -Unknown System Inflammatory Response Syndrome: Not Applicable Musculoskeletal Complaint Exam - Back Pain Complaint/Exam Mechanism of Injury: Reports: No known trauma Onset/Duration: 2 days Symptoms Are: Still present Timing: Intermittent Episodes Lasting: Days Initial Severity: Mild Current Severity: Mild Location: Reports: Discrete Character: Reports: Aching Aggravating: Reports: Movements, Lifting, Bending, Walking Associated Signs and Symptoms: Reports: Flank pain. Denies: Swelling, Redness, Bruising, Fever, Weakness, Numbness, Tingling, Abdominal pain, Bladder incontinence, Bowel incontinence, Weight loss, Pain with weight bearing Related History: Reports: Similar episode (uti) TAD Risk Factors: Reports: None AAA Risk Factors: Reports: None Cauda Equina Risk Factors: Reports: None Epidural Abcess Risk Factors: Reports: None Related Surgical History: Reports: None Focal Tenderness: No Paraspinal Muscle Tenderness: No Paraspinal Muscle Spasm: No Scoliosis: No Lordosis: No Kyphosis: No SLR Test: Right Negative, Left Negative Hip Motion Testing Pain: Right Negative, Left Negative Focal Weakness: Present: None Focal Sensory Loss: Present: None Gait: Present: Normal Differential Diagnoses: Renal Colic, Other (uti) Review of Systems - Review Of Systems Constitutional: Reports: No symptoms Eyes: Reports: No symptoms Ears, Nose, Mouth, Throat: Reports: No symptoms Respiratory: Reports: No symptoms Cardiac: Reports: No symptoms GI: Reports: No symptoms : Reports: Dysuria, Frequency Musculoskeletal: Reports: Back pain Skin: Reports: No symptoms Neurological: Reports: No symptoms Endocrine: Reports: No symptoms Hematologic/Lymphatic: Reports: No symptoms All Other Systems: Reviewed and Negative Past Medical History - Past Medical History Previously Healthy: Yes Endocrine: Reports: None Cardiovascular: Reports: None Respiratory: Reports: None Hematological: Reports: None Gastrointestinal: Reports: None Genitourinary: Reports: None Neuro/Psych: Reports: None Musculoskeletal: Reports: Joint Pain Cancer: Reports: None Last Menstrual Period: october - Surgical History General Surgical History: Reports: Tubal ligation - Family History Family History: Reports: Cancer (Breast cancer at early age ) - Social History Smoking Status: Current every day smoker, Heavy tobacco smoker Hx Substance Use: No Alcohol Screening: None Physical Exam - Physical Exam Appearance: Well-appearing, No pain distress, Well-nourished Eyes: RIMMA, EOMI, Conjunctiva clear ENT: Ears normal, Nose normal, Oropharynx normal Respiratory: Airway patent, Breath sounds clear, Breath sounds equal, Respirations nonlabored Cardiovascular: RRR, Pulses normal, No rub, No murmur GI/: Soft, Nontender, No masses, Bowel sounds normal, No Organomegaly Musculoskeletal: Normal strength, ROM intact, No edema, No calf tenderness Skin: Warm, Dry, Normal color Neurological: Sensation intact, Motor intact, Reflexes intact, Cranial nerves intact, Alert, Oriented Psychiatric: Affect appropriate, Mood appropriate Critical Care Note - Critical Care Note Total Time (mins): 0 Course - Course Hematology/Chemistry: 11/01/17 10:20 11/01/17 10:20 Orders, Labs, Meds: Lab Review 11/01/17 11/01/17 11/01/17 10:05 10:20 10:20 WBC 9.54 RBC 4.46 Hgb 14.1 Hct 40.2 MCV 90.1 MCH 31.6 H MCHC 35.1 RDW Coeff of Cate 14.7 Plt Count 182 Immature Gran % (Auto) 0.2 Neut % (Auto) 68.1 Lymph % (Auto) 21.0 [place] % (Auto) 9.1 Eos % (Auto) 1.2 Baso % (Auto) 0.4 Immature Gran # (Auto) 0.0 Neut # (Auto) 6.5 Lymph # (Auto) 2.0 [place] # (Auto) 0.9 Eos # (Auto) 0.1 Baso # (Auto) 0.0 Sodium 138 Potassium 3.7 Chloride 105 Carbon Dioxide 22 Anion Gap 14.7 BUN 9 Creatinine 0.75 Estimated GFR (MDRD) 88.00 BUN/Creatinine Ratio 12.00 Glucose 123 H Calcium 9.4 Total Bilirubin 0.8 AST 11 L ALT 20 Alkaline Phosphatase 64 Total Protein 6.8 Albumin 3.8 Globulin 3.0 Albumin/Globulin Ratio 1.27 Urine Color Yellow Urine Clarity Turbid Urine pH 6.0 Ur Specific [place] >=1.030 Urine Protein 2+ Urine Glucose (UA) Negative Urine Ketones 1+ Urine Blood 3+ Urine Nitrite Positive Urine Bilirubin 1+ Urine Urobilinogen 1.0 Ur Leukocyte Esterase 1+ Urine Microscopic RBC 5-10 Urine Microscopic WBC 20-30 Ur Squamous Epith Cells 2-5 Urine Bacteria 3+ Urine Mucus 2+ Orders Category Date Time Status CBC W/ AUTO DIFF Stat LAB 11/01/17 10:20 Completed COMPREHENSIVE METABOLIC PANEL Stat LAB 11/01/17 10:20 Received URINALYSIS C & S IF INDICATED Stat LAB 11/01/17 10:05 Completed URINE CULTURE Routine LAB 11/01/17 10:05 Received Ceftriaxone Sodium [Rocephin] MEDS 11/01/17 10:50 Stat 1 gm IM ONCE STA Hydrocodone Bit/Acetaminophen [[place] 10-325] MEDS 11/01/17 10:51 Stat 1 tab PO ONCE STA Lidocaine HCl/Pf [Lidocaine HCl 1% Sdv] MEDS 11/01/17 10:50 Stat 2.1 ml IM ONCE STA Medications Discontinued Medications Generic Name Dose Route Start Last Admin Trade Name Santiagoq PRN Reason Stop Dose Admin Hydrocodone Bitart/Acetaminophen 1 tab 11/01/17 10:51 11/01/17 11:08 [place] 10-325 PO 11/01/17 10:52 1 tab ONCE STA Administration Ceftriaxone Sodium 1 gm 11/01/17 10:50 11/01/17 11:10 Rocephin IM 11/01/17 10:51 1 gm ONCE STA Administration Lidocaine HCl 2.1 ml 11/01/17 10:50 11/01/17 11:10 Lidocaine Hcl 1% Sdv IM 11/01/17 10:51 2.1 ml ONCE STA Administration Vital Signs: Temp Pulse Resp BP Pulse Ox 11/01/17 09:47 97.7 F 106 H 16 144/86 H 98 Departure - Departure Time of Disposition: 11:48 Disposition: HOME SELF-CARE Discharge Problem: Backache UTI (urinary tract infection) Qualifiers: Hematuria presence: with hematuria Instructions: Urinary Tract Infection in Women (ED) Condition: Good Pt referred to PMD for follow-up: Yes IPMP verified?: No Additional Instructions: Please call your Family Physician as soon as possible to schedule a follow-up appointment. Allergies/Adverse Reactions: Allergies codeine Adverse Reaction (Verified 11/01/17 09:53) THROAT SWELLS SHUT ketorolac [From Toradol] Adverse Reaction (Verified 11/01/17 09:53) morphine Adverse Reaction (Verified 11/01/17 09:53) THROAT SWELLING Penicillins Adverse Reaction (Verified 11/01/17 09:53) tape Adverse Reaction (Uncoded 11/01/17 09:53) Home Medications: Ambulatory Orders Gabapentin 600 mg PO TID 01/31/14 Alprazolam [Xanax] 2 mg PO TID 02/08/15 Citalopram Hydrobromide [Celexa] 40 mg PO BID 02/24/15 Ibuprofen 800 mg PO TID PRN 08/27/15 Levetiracetam [Keppra] 1,500 mg PO BID 11/01/17
== END 2017-11-01 11:55 | disposition home or self-care (01) ==
LOC: ED 09:46
DX: N39.0 Urinary tract infection, site not specified (principal); R31.9 Hematuria, unspecified; M54.5 Low back pain; F17.210 Nicotine dependence, cigarettes, uncomplicated
CPT/HCPCS: 36415; 80053; 81001; 85025; 87086; 87186; 96372; 99283